=== PATIENT | female | born 1995 | race Caucasian/White ===

== ENCOUNTER 2016-12-14 08:18 | Emergency (ER) | payer OTHER ==
--- NOTE | 2016-12-14 08:24 | EDPHY ---
H & P Time Seen by Provider: 12/14/16 08:23 HPI/ROS: CHIEF COMPLAINT: Left posterior rib pain after coughing HISTORY OF PRESENT ILLNESS: The patient presents to the ED with complaints of left posterior rib pain which began after coughing earlier today. The patient was diagnosed with pneumonia 2 weeks ago and treated with a Z-Kale. Since that time she has had a lingering cough. The patient has remote history of a postoperative PE. She had a hypercoagulable workup at that point time which was negative. She is currently not anticoagulated. She denies any asymmetric calf pain or swelling. She clearly had antecedent infectious symptoms with a productive cough rhinorrhea and reported pneumonia diagnosed on chest x-ray at the [facility]. The patient denies additional acute complaints. REVIEW OF SYSTEMS: A comprehensive 10 point review of systems is otherwise negative aside from elements mentioned in the history of present illness. Source: Patient Exam Limitations: No limitations - Medical/Surgical History Hx Asthma: Yes Hx Chronic Respiratory Disease: No Hx Diabetes: No Hx Cardiac Disease: No Hx Renal Disease: No Hx Cirrhosis: No Hx Alcoholism: No Hx HIV/AIDS: No Hx Splenectomy or Spleen Trauma: No Other PMH: anxiety, ovarian cyst, PE - Family History Significant Family History: No pertinent family hx - Social History Smoking Status: Never smoked - Physical Exam Exam: General Appearance: Alert, no distress Eyes: Pupils equal and round no pallor or injection ENT, Mouth: Mucous membranes moist Respiratory: Tenderness to palpation left posterior ribs, lungs clear to auscultation bilaterally Cardiovascular: Regular rate and rhythm Gastrointestinal: Abdomen is soft and nontender, no masses, bowel sounds normal Neurological: A&O, normal motor function, normal sensory exam, normal cranial nerves Skin: Warm and dry, no rashes Musculoskeletal: Neck is supple nontender Extremities: symmetrical, full range of motion, no asymmetric calf pain or swelling Constitutional: Initial Vital Signs Temperature (C) 37.0 C 12/14/16 08:22 Heart Rate 85 12/14/16 08:22 Respiratory Rate 18 12/14/16 08:22 Blood Pressure 108/83 H 12/14/16 08:22 O2 Sat (%) 98 12/14/16 08:22 O2 Delivery Mode Room Air Allergies/Adverse Reactions: No Known Allergies Allergy (Unverified 05/22/13 19:34) Home Medications: Medication Instructions Recorded Ativan 05/22/13 Implanon 05/22/13 Symbicort 160-4.5 Mcg Inh (RX) 05/22/13 Lidocaine 5% [Lidoderm 5% Patch 1 ea TD DAILY #12 patch 12/14/16 (*)] Propranolol Sr 12/14/16 Medical Decision Making - Diagnostics Imaging Results: Chest x-ray PA lateral: Images reviewed by myself and discussed with radiologist, no evidence of ongoing pneumonia, rib fracture or pneumothorax appreciated. ED Course/Re-evaluation: The patient presents to the ED with chest wall and rib pain following a episode of coughing. She has no evidence of an obvious rib fracture noted on her x- ray. I have explained her the possibility of a nondisplaced rib fracture. There is no evidence of a concurrent pneumothorax or pneumonia. The patient did receive lidocaine patch in the emergency department. The patient will be advised to use ibuprofen as needed for pain. The patient will be provided a prescription for lidocaine patches. She is advised to return to the ED for markedly worsening pain, difficulty breathing or other concerns. Differential Diagnosis: Differential diagnosis considered includes rib fracture, pneumothorax, hemothorax, chest wall contusion, pneumonia - Data Points Medications Given: Discontinued Medications Lidocaine (Lidoderm 5%) 1 ea TD EDNOW ONE Stop: 12/14/16 08:53 Last Admin: 12/14/16 09:06 Dose: 1 ea Departure - Departure Disposition: Home, Routine, Self-Care Clinical Impression: Rib pain on left side Condition: Good Instructions: Rib Fracture (ED) Additional Instructions: 1. Take Ibuprofen or Motrin 600 mg by mouth three times a day. 2. Lidocaine patches as needed 3. Return to the emergency department for markedly worsening pain, difficulty breathing or other concerns. Referrals: Anahi Nunn MD [Primary Care Provider] - As per Instructions
[2016-12-14 08:25] VITALS: BP 108/83; PULSE 85; RESP 18; TEMP 98.6; O2SAT 98
[2016-12-14] MEDS ORDERED: LIDOCAINE 5% 1 EA PATCH TD ONE (08:52)
[2016-12-14] MEDS ORDERED: PATCH REMOVAL 1 EA PATCH TD SCH (21:00)
== END 2016-12-14 10:17 | disposition home or self-care (01) ==
DX: R07.81 Pleurodynia (principal); J45.909 Unspecified asthma, uncomplicated